=== PATIENT | female | born 1970 | race African-American/Black ===

== ENCOUNTER 2023-08-30 15:07 | Outpatient (AMB) | payer OTHER, SELFPAY ==
--- NOTE | 2023-08-30 15:07 | MHC.OFFVIS ---
Vital Signs 08/30/23 15:12 Height 5 ft 5 in Weight 202 lb 2.622 oz BMI 33.6 BP 152/98 H Blood Pressure Location Lt brachial Position Sitting Intake Visit Reasons: Joint Pain ?FM/CM Intake Note: [id number] Recruiting Assistant Required: Yes Recruiting Assistant Language: Finding Fastener Name: Louise Londono ( LORETTA) Allergies No Known Allergies Allergy (Verified 08/30/23 15:10) HPI Comments Details: Mr. Parra 53yoF presents for evlauation of pain all over body she has had for a few years and gets worse daily. --started in heel bottom of feet - cortisone x 4. restarted to hurt last year. - bottom heel injections 5 years ago --pain in two big toes, knees leg, arms, hips, middle of back - knees hurt with going down stairs, feels instability especially right knee. --morning pain is intense - resolves in about 30 minutes. --cortisone to both thumbs; trigger thumb last year --had PT for hands and forearm for CTS. --denies swelling in joints. --takes Ibuprofen 600 mg which helps PFSH Medical History (Updated 08/30/23 @ 15:51 by ALEX Mejia-) Chronic radicular pain of lower back Pain in joint involving multiple sites Allergic rhinitis Asthma Other cervical disc displacement, unspecified cervical region Positive PPD Obesity, unspecified Menorrhagia Iron deficiency anemia, unspecified Uterine mass Vitamin D deficiency, unspecified Surgical History (Updated 08/17/23 @ 10:34 by LEA Arciniega) Hx of dilation and curettage Hx of section Family History (Updated 08/17/23 @ 10:34 by LEA Arciniega) Mother Brain aneurysm Review of Systems Const All systems reviewed & are unremarkable except as noted in HPI and below Physical Exam Vital Signs: Last Vital Signs BP 152/98 H 08/30/23 15:12 BMI result Body Mass Index 33.6 APPEARANCE: Patient in no acute distress EYES no redness, normal EARS:? External ear normal. NOSE/SINUS:? Airflow through both nares, no nasal discharge, no bleeding THROAT:? Oral mucosa moist, no ulcerations NECK:? No thyromegaly or masses, no adenopathy, trachea midline. HEART:? Regular rhythm, S1-S2 heard, no murmurs, rubs or gallops. LUNG:? Clear to percussion and auscultation EXTREMITIES:? No edema, no calf tenderness, normal peripheral pulses. NEURO:? Oriented and alert x3.? No focal weakness.? Reflexes symmetric.? Gait normal. SKIN:? There are no skin lesions evident. No objective signs of Raynaud's phenomenon. JOINT EXAM: Cervical Spine:.? Full range of motion without pain; no tenderness. Thoracic Spine:.? No scoliosis.? No tenderness on palpation. Lumbar Spine:.? Alignment normal.? decreased range of motion with soreness when bent over, , mild paraspinal tenderness. Chest Wall:.? No tenderness, swelling, increased warmth or erythema. Hands:.? Normal pain-free range of motion with diffused mild tenderness but no swelling, increased warmth or erythema. Able to make a full fist and has a good wood room hand strength. Wrists:.? Normal pain-free range of motion without tenderness, swelling, increased warmth or erythema. Elbows:. Normal pain-free range of motion without tenderness, swelling, increased warmth or erythema. Shoulders:.?? Full range of motion without pain. No tenderness, weakness, swelling, increased warmth or erythema. Hips:.? Full range of motion without pain. Hip bursa:.? No tenderness. Knees:.?? Normal pain-free range of motion without tenderness, swelling, increased warmth or erythema.? There is no effusion or crepitation Ankles:.? Normal pain-free range of motion without tenderness, swelling, increased warmth or erythema. Feet:.? Normal pain-free range of motion without tenderness, swelling, increased warmth or erythema. Tender points:? No tenderness to digital palpation at the occiput, trapezius, second rib, lateral epicondyle, knees, greater trochanter and gluteal area bilaterally. ? Results Reviewed Results Reviewed: Laboratory Tests 08/30/23 16:12 WBC 5.5 RBC 5.05 Hgb 12.2 Hct 37.6 ESR 8 Creatinine 0.69 Estimated GFR > 60 AST 17 ALT 15 C-Reactive Protein < 0.10 Assessment & Plan Assessment & Plan (1) Pain in joint involving multiple sites: Code(s): M25.50 - Pain in unspecified joint Category: Medical Plan #Patient with pain in multiple joints, lower back both knees and hands. Not much tenderness with palpation is elicited on PE. She denies swelling and warmth and redness and none observed on PE. I suspect the patient might have heel spurs for which she had received cortisone injection 5 years ago or more. Nonetheless she does not present as having an inflammatory arthritis. I will obtain additional labs and x-rays for further workup. Spent 40 minutes reviewing history, evaluating patient and documenting Five weeks follow up Orders: Orders Anti DNA DS Antibody 08/30/23 M25.50 - Pain in unspecified joint Complete Blood Count Auto Diff 08/30/23 M25.50 - Pain in unspecified joint Comprehensive Met. Panel 08/30/23 M25.50 - Pain in unspecified joint C Reactive Protein 08/30/23 M25.50 - Pain in unspecified joint Immunofixation Pnl, Serum 08/30/23 M25.50 - Pain in unspecified joint Immunoglobulins,IgG IgA IgM 08/30/23 M25.50 - Pain in unspecified joint Protein Electrophoresis, Serum 08/30/23 M25.50 - Pain in unspecified joint Cyclic Citrullinated Peptide 08/30/23 M25.50 - Pain in unspecified joint Rheumatoid Factor 08/30/23 M25.50 - Pain in unspecified joint XR knee LT 3V 08/30/23 M25.50 - Pain in unspecified joint XR hand RT 2V 08/30/23 M25.50 - Pain in unspecified joint XR knee RT 3V 08/30/23 M25.50 - Pain in unspecified joint XR lumbar spine 2-3V 08/30/23 G89.29 - Other chronic pain, M54.16 - Radiculopathy, lumbar region Erythrocyte Sedimentation Rate 08/30/23 M25.50 - Pain in unspecified joint ASHLY Reflex Titer and Pattern 08/30/23 M25.50 - Pain in unspecified joint Anti Extractable Nuclear Ag 08/30/23 M25.50 - Pain in unspecified joint Creatine Kinase Total 08/30/23 M25.50 - Pain in unspecified joint Uric Acid 08/30/23 M25.50 - Pain in unspecified joint XR foot LT min 3V 08/30/23 M25.50 - Pain in unspecified joint XR foot RT min 3V 08/30/23 M25.50 - Pain in unspecified joint XR hand LT 2V 08/30/23 M25.50 - Pain in unspecified joint Coding Level of Care Code New Pt Level 4 (48208) Diagnoses Pain in joint involving multiple sites M25.50
[2023-08-30 15:12] VITALS: BP 152/98; BMI 33.6
== END 2023-08-30 15:53 | disposition home or self-care (01) ==
PROVIDERS: PCP Nurse Practitioner Family; Referring Provider Nurse Practitioner Family; Visit Provider Nurse Practitioner Family
DX: M25.50 Pain in unspecified joint (principal)
CPT/HCPCS: 99204

== ENCOUNTER 2023-08-30 15:07 | Outpatient (REF) | payer OTHER, SELFPAY ==
--- NOTE | ~2023-08-30 | XR_ITS ---
EXAMINATION: XR HAND, RIGHT XR HAND, LEFT XR KNEE, RIGHT XR FOOT, RIGHT XR FOOT, LEFT CLINICAL INDICATION: Pain in unspecified joint. COMPARISON: None available. TECHNIQUE: 3 views of each foot, 3 views of each hand, 3 views of the right knee. FINDINGS: RIGHT KNEE: Trace joint effusion. Mild narrowing of the medial compartment. Advanced degenerative changes in the patellofemoral compartment with asymmetric narrowing of the lateral aspect of the patellofemoral joint with subchondral sclerosis and cystic changes. Small tricompartmental osteophytes. Small calcification in the soft tissues lateral to the lateral femoral condyle. RIGHT HAND: Mild degenerative changes in the first carpometacarpal joint with joint space narrowing and hypertrophic change. Bone mineralization is normal. Mild hypertrophic changes in multiple DIP joints. LEFT HAND: Mild degenerative changes in the first carpometacarpal joint with joint space narrowing and hypertrophic change. Bone mineralization is normal. Mild hypertrophic changes in multiple DIP joints. RIGHT FOOT: Bone mineralization is normal. Moderate plantar calcaneal spur. Degenerative changes with hypertrophic change at the dorsal aspect of the midfoot. Mild degenerative changes in the first metatarsophalangeal joint with joint space narrowing and hypertrophic change. Metatarsus adductus, hallux valgus. LEFT FOOT: Bone mineralization is normal. Moderate plantar calcaneal spur. Degenerative changes with hypertrophic change at the dorsal aspect of the midfoot. Mild degenerative changes in the first metatarsophalangeal joint with joint space narrowing and hypertrophic change. Metatarsus adductus, hallux valgus. XR/XR hand RT 2V IMPRESSION: 1. Advanced degenerative changes right patellofemoral compartment. 2. Mild degenerative changes bilateral first carpometacarpal joints. 3. Mild degenerative changes in the bilateral first metatarsophalangeal joints. 4. Mild bilateral plantar calcaneal spurs. 5. Metatarsus adductus, hallux valgus bilaterally.
--- NOTE | ~2023-08-30 | XR_ITS ---
EXAMINATION: XR LUMBOSACRAL SPINE CLINICAL INFORMATION: Radiculopathy lumbar region. COMPARISON: None available. TECHNIQUE: Three views of the lumbosacral spine. FINDINGS: Facet arthritis in the lower lumbar spine. Levoscoliosis of the lumbar spine. Multilevel lumbar spondylosis with mild loss of disc space height at L4-L5 and moderate loss of disc space height at L5-S1. Mild grade 1 retrolisthesis of L5 on S1. XR/XR lumbar spine 2-3V IMPRESSION: Multilevel lumbar spondylosis most notable at L5-S1.
--- NOTE | ~2023-08-30 | XR_ITS ---
EXAMINATION: XR HAND, RIGHT XR HAND, LEFT XR KNEE, RIGHT XR FOOT, RIGHT XR FOOT, LEFT CLINICAL INDICATION: Pain in unspecified joint. COMPARISON: None available. TECHNIQUE: 3 views of each foot, 3 views of each hand, 3 views of the right knee. FINDINGS: RIGHT KNEE: Trace joint effusion. Mild narrowing of the medial compartment. Advanced degenerative changes in the patellofemoral compartment with asymmetric narrowing of the lateral aspect of the patellofemoral joint with subchondral sclerosis and cystic changes. Small tricompartmental osteophytes. Small calcification in the soft tissues lateral to the lateral femoral condyle. RIGHT HAND: Mild degenerative changes in the first carpometacarpal joint with joint space narrowing and hypertrophic change. Bone mineralization is normal. Mild hypertrophic changes in multiple DIP joints. LEFT HAND: Mild degenerative changes in the first carpometacarpal joint with joint space narrowing and hypertrophic change. Bone mineralization is normal. Mild hypertrophic changes in multiple DIP joints. RIGHT FOOT: Bone mineralization is normal. Moderate plantar calcaneal spur. Degenerative changes with hypertrophic change at the dorsal aspect of the midfoot. Mild degenerative changes in the first metatarsophalangeal joint with joint space narrowing and hypertrophic change. Metatarsus adductus, hallux valgus. LEFT FOOT: Bone mineralization is normal. Moderate plantar calcaneal spur. Degenerative changes with hypertrophic change at the dorsal aspect of the midfoot. Mild degenerative changes in the first metatarsophalangeal joint with joint space narrowing and hypertrophic change. Metatarsus adductus, hallux valgus. XR/XR foot LT min 3V IMPRESSION: 1. Advanced degenerative changes right patellofemoral compartment. 2. Mild degenerative changes bilateral first carpometacarpal joints. 3. Mild degenerative changes in the bilateral first metatarsophalangeal joints. 4. Mild bilateral plantar calcaneal spurs. 5. Metatarsus adductus, hallux valgus bilaterally.
--- NOTE | ~2023-08-30 | XR_ITS ---
EXAMINATION: XR KNEE, LEFT CLINICAL INFORMATION: Pain in unspecified joint. COMPARISON: None available. TECHNIQUE: Three views of the left knee. FINDINGS: Small joint effusion. Mild narrowing of the medial compartment. Asymmetric lateral narrowing of the patellofemoral compartment with subchondral sclerosis and lucencies as well as marginal osteophytes on the sunrise view. Small medial and posterior patellar osteophytes. XR/XR knee LT 3V IMPRESSION: Degenerative changes most notable in the patellofemoral compartment.
--- NOTE | ~2023-08-30 | XR_ITS ---
EXAMINATION: XR HAND, RIGHT XR HAND, LEFT XR KNEE, RIGHT XR FOOT, RIGHT XR FOOT, LEFT CLINICAL INDICATION: Pain in unspecified joint. COMPARISON: None available. TECHNIQUE: 3 views of each foot, 3 views of each hand, 3 views of the right knee. FINDINGS: RIGHT KNEE: Trace joint effusion. Mild narrowing of the medial compartment. Advanced degenerative changes in the patellofemoral compartment with asymmetric narrowing of the lateral aspect of the patellofemoral joint with subchondral sclerosis and cystic changes. Small tricompartmental osteophytes. Small calcification in the soft tissues lateral to the lateral femoral condyle. RIGHT HAND: Mild degenerative changes in the first carpometacarpal joint with joint space narrowing and hypertrophic change. Bone mineralization is normal. Mild hypertrophic changes in multiple DIP joints. LEFT HAND: Mild degenerative changes in the first carpometacarpal joint with joint space narrowing and hypertrophic change. Bone mineralization is normal. Mild hypertrophic changes in multiple DIP joints. RIGHT FOOT: Bone mineralization is normal. Moderate plantar calcaneal spur. Degenerative changes with hypertrophic change at the dorsal aspect of the midfoot. Mild degenerative changes in the first metatarsophalangeal joint with joint space narrowing and hypertrophic change. Metatarsus adductus, hallux valgus. LEFT FOOT: Bone mineralization is normal. Moderate plantar calcaneal spur. Degenerative changes with hypertrophic change at the dorsal aspect of the midfoot. Mild degenerative changes in the first metatarsophalangeal joint with joint space narrowing and hypertrophic change. Metatarsus adductus, hallux valgus. XR/XR knee RT 3V IMPRESSION: 1. Advanced degenerative changes right patellofemoral compartment. 2. Mild degenerative changes bilateral first carpometacarpal joints. 3. Mild degenerative changes in the bilateral first metatarsophalangeal joints. 4. Mild bilateral plantar calcaneal spurs. 5. Metatarsus adductus, hallux valgus bilaterally.
--- NOTE | ~2023-08-30 | XR_ITS ---
EXAMINATION: XR HAND, RIGHT XR HAND, LEFT XR KNEE, RIGHT XR FOOT, RIGHT XR FOOT, LEFT CLINICAL INDICATION: Pain in unspecified joint. COMPARISON: None available. TECHNIQUE: 3 views of each foot, 3 views of each hand, 3 views of the right knee. FINDINGS: RIGHT KNEE: Trace joint effusion. Mild narrowing of the medial compartment. Advanced degenerative changes in the patellofemoral compartment with asymmetric narrowing of the lateral aspect of the patellofemoral joint with subchondral sclerosis and cystic changes. Small tricompartmental osteophytes. Small calcification in the soft tissues lateral to the lateral femoral condyle. RIGHT HAND: Mild degenerative changes in the first carpometacarpal joint with joint space narrowing and hypertrophic change. Bone mineralization is normal. Mild hypertrophic changes in multiple DIP joints. LEFT HAND: Mild degenerative changes in the first carpometacarpal joint with joint space narrowing and hypertrophic change. Bone mineralization is normal. Mild hypertrophic changes in multiple DIP joints. RIGHT FOOT: Bone mineralization is normal. Moderate plantar calcaneal spur. Degenerative changes with hypertrophic change at the dorsal aspect of the midfoot. Mild degenerative changes in the first metatarsophalangeal joint with joint space narrowing and hypertrophic change. Metatarsus adductus, hallux valgus. LEFT FOOT: Bone mineralization is normal. Moderate plantar calcaneal spur. Degenerative changes with hypertrophic change at the dorsal aspect of the midfoot. Mild degenerative changes in the first metatarsophalangeal joint with joint space narrowing and hypertrophic change. Metatarsus adductus, hallux valgus. XR/XR foot RT min 3V IMPRESSION: 1. Advanced degenerative changes right patellofemoral compartment. 2. Mild degenerative changes bilateral first carpometacarpal joints. 3. Mild degenerative changes in the bilateral first metatarsophalangeal joints. 4. Mild bilateral plantar calcaneal spurs. 5. Metatarsus adductus, hallux valgus bilaterally.
--- NOTE | ~2023-08-30 | XR_ITS ---
EXAMINATION: XR HAND, RIGHT XR HAND, LEFT XR KNEE, RIGHT XR FOOT, RIGHT XR FOOT, LEFT CLINICAL INDICATION: Pain in unspecified joint. COMPARISON: None available. TECHNIQUE: 3 views of each foot, 3 views of each hand, 3 views of the right knee. FINDINGS: RIGHT KNEE: Trace joint effusion. Mild narrowing of the medial compartment. Advanced degenerative changes in the patellofemoral compartment with asymmetric narrowing of the lateral aspect of the patellofemoral joint with subchondral sclerosis and cystic changes. Small tricompartmental osteophytes. Small calcification in the soft tissues lateral to the lateral femoral condyle. RIGHT HAND: Mild degenerative changes in the first carpometacarpal joint with joint space narrowing and hypertrophic change. Bone mineralization is normal. Mild hypertrophic changes in multiple DIP joints. LEFT HAND: Mild degenerative changes in the first carpometacarpal joint with joint space narrowing and hypertrophic change. Bone mineralization is normal. Mild hypertrophic changes in multiple DIP joints. RIGHT FOOT: Bone mineralization is normal. Moderate plantar calcaneal spur. Degenerative changes with hypertrophic change at the dorsal aspect of the midfoot. Mild degenerative changes in the first metatarsophalangeal joint with joint space narrowing and hypertrophic change. Metatarsus adductus, hallux valgus. LEFT FOOT: Bone mineralization is normal. Moderate plantar calcaneal spur. Degenerative changes with hypertrophic change at the dorsal aspect of the midfoot. Mild degenerative changes in the first metatarsophalangeal joint with joint space narrowing and hypertrophic change. Metatarsus adductus, hallux valgus. XR/XR hand LT 2V IMPRESSION: 1. Advanced degenerative changes right patellofemoral compartment. 2. Mild degenerative changes bilateral first carpometacarpal joints. 3. Mild degenerative changes in the bilateral first metatarsophalangeal joints. 4. Mild bilateral plantar calcaneal spurs. 5. Metatarsus adductus, hallux valgus bilaterally.
[2023-08-30 16:19] LABS: MANUAL DIFF FLAG NO
[2023-08-30 16:35] LABS: Basophils Percent Auto 0.6 % (0-2); Eosinophils Absolute Auto 0.1 X10*3/uL (0.0-0.4); Eosinophils Percent Auto 1.7 % (0-4); Hematocrit 37.6 % (37.0-47.0); Hemoglobin 12.2 g/dl (12.0-16.0); Imm Gran Abs Auto 0.01 X10*3/uL (0.00-0.03); Imm Gran Pct Auto 0.2 % (0.0-0.4); Lymphocytes Absolute Auto 1.3 X10*3/uL (1.2-4.9); Lymphocytes Percent Auto 24.6 % (20-40); Mean Corpuscular HGB Conc 32.4 g/dl (31.0-35.0); Mean Corpuscular Hemoglobin 24.2 pg (27.0-33.0); Mean Corpuscular Volume 74.5 fL (80.0-98.0); Mean Platelet Volume 11.6 fL (9.4-12.3); Monocytes Absolute Auto 0.7 X10*3/uL (0.1-1.2); Monocytes Percent Auto 11.9 % (2-11); Neutrophils Absolute Auto 3.3 x10*3/uL (2.0-8.3); Platelet Count 241 X10*3/uL (160-400); Red Blood Count 5.05 X10*6/uL (4.20-5.50); Red Cell Distribution Width 14.4 % (11.0-16.0); White Blood Count 5.5 X10*3/uL (4.8-10.8)
[2023-08-30 17:30] LABS: Erythrocyte Sedimentation Rate 8 MM/HR (0-20)
[2023-08-30 17:48] LABS: Rheumatoid Factor < 13.0 IU/mL (<15.0)
[2023-08-30 17:55] LABS: Alanine Aminotransferase 15 U/L (0-31); Albumin Level 4.3 g/dL (3.5-5.0); Alkaline Phosphatase 59 U/L (39-117); Anion Gap 13 (12-20); Aspartate Amino Transferase 17 U/L (5-31); Bilirubin Total 0.2 mg/dL (0.0-1.0); Blood Urea Nitrogen 14 mg/dL (9-16); C Reactive Protein < 0.10 mg/dL (< or = 0.50); Calcium 9.1 mg/dL (8.4-10.2); Carbon Dioxide 24 mmol/L (22-29); Chloride 108 mmol/L (96-108); Estimated Glomerular Filt Rate > 60; Glucose Random 95 mg/dL (60-115); Potassium 4.1 mmol/L (3.3-5.1); Sodium 141 mmol/L (135-145); Total Protein 7.7 g/dL (6.5-8.0)
[2023-08-30 18:06] LABS: Uric Acid 4.9 mg/dL (2.4-5.7)
[2023-08-31 21:13] LABS: Anti DNA DS Antibody <1 IU/mL; SM/Ribonucleoprotein Ab <1.0 NEG AI (<1.0 NEG); Smith Protein <1.0 NEG AI (<1.0 NEG)
[2023-08-31 22:13] LABS: Prot Elec - Albumin 4.4 g/dL (3.8-4.8); Prot Elec - Alpha1 0.2 g/dL (0.2-0.3); Prot Elec - Alpha2 0.7 g/dL (0.5-0.9); Prot Elec - Beta 1 0.5 g/dL (0.4-0.6); Prot Elec - Beta 2 0.5 g/dL (0.2-0.5); Prot Elec - Gamma 1.3 g/dL (0.8-1.7); Prot Elec - Total Protein 7.5 g/dL (6.1-8.1)
[2023-09-01 14:44] LABS: Cyclic Citrullinated Peptide <16 UNITS
[2023-09-04 14:24] LABS: Anti Nuclear Antibody Pattern Mitotic, Centrosome; Anti Nuclear Antibody Screen POSITIVE (NEGATIVE)
[2023-09-04 22:08] LABS: IgA 278 mg/dL (47-310); IgG 1513 mg/dL (600-1640); IgM 28 mg/dL (50-300)
== END 2023-08-30 15:08 | disposition home or self-care (01) ==
LOC: HO.XRAY 15:07
PROVIDERS: PCP Nurse Practitioner Family; Referring Provider Nurse Practitioner Family; Visit Provider Nurse Practitioner Family
DX: M25.50 Pain in unspecified joint (principal); M54.16 Radiculopathy, lumbar region; G89.29 Other chronic pain
CPT/HCPCS: 36415; 72100; 73120; 73562; 73630; 80053; 82550; 82784; 84165; 84550; 85025; 85652; 86038; 86039; 86140; 86200; 86225; 86235; 86334; 86431; 99202

== ENCOUNTER 2023-11-06 15:41 | Outpatient (AMB) | payer OTHER, SELFPAY ==
[2023-11-06 15:44] VITALS: BP 140/82; PULSE 101; O2SAT 97; BMI 33.8
--- NOTE | 2023-11-06 15:44 | A.OFFVIS_ITS ---
Vital Signs 11/06/23 15:44 Height 5 ft 5 in Weight 203 lb BMI 33.8 BP 140/82 H Blood Pressure Location Lt brachial Position Sitting Pulse 101 H Pulse Source Pulse Oximeter Pulse Oximetry (%) 97 Oxygen Delivery Method Room Air Intake Visit Reasons: Joint Pain Intake Note: Patient is here to follow up on joint pain, was seen by Addie Lau on 08/30/2023. She had her labs drawn on the same day. Waiter/Waitress Head Required: Yes Waiter/Waitress Head Services: Waiter/Waitress Head Present Waiter/Waitress Head Name: Rossy Coronel. Accompanied by: Spouse Allergies No Known Allergies Allergy (Verified 11/06/23 15:49) Medication List - Last Reconciled 11/06/23 by Bertin Arzola MD cetirizine 10 mg PO DAILY cholecalciferol (vitamin D3) 1,250 mcg PO QWEEK cyclobenzaprine 5 mg PO TID PRN ibuprofen 600 mg PO Q6H PRN lisinopril 10 mg PO DAILY HPI Comments Details: Patient returns for follow-up after completion of her diagnostic workup. Patient is unaware of any family history of an autoimmune rheumatic disease. Denies any history of DVT/PE. No history of recurrent miscarriages. Initial history by Addie Bryant 08/2023: Mr. Parra 53yoF presents for evlauation of pain all over body she has had for a few years and gets worse marimar y. --started in heel bottom of feet - cortisone x 4. restarted to hurt last year. - bottom heel injections 5 years ago --pain in two big toes, knees leg, arms, hips, middle of back - knees hurt with going down stairs, feels instability especially right knee. --morning pain is intense - resolves in about 30 minutes. --cortisone to both thumbs; trigger thumb last year --had PT for hands and forearm for CTS. --denies swelling in joints. --takes Ibuprofen 600 mg which helps PFSH Medical History Chronic radicular pain of lower back Pain in joint involving multiple sites Allergic rhinitis Asthma Other cervical disc displacement, unspecified cervical region Positive PPD Obesity, unspecified Menorrhagia Iron deficiency anemia, unspecified Uterine mass Vitamin D deficiency, unspecified Surgical History Hx of dilation and curettage Hx of section Family History Mother Brain aneurysm Female Reproductive History Menstrual Total pregnancies: 4 Full term: 3 Ab spontaneous: 1 Review of Systems ENT Reports neck pain Musc Reports back pain, Reports arthralgias, Reports neck pain and Reports stiffness Physical Exam Vital Signs: Last Vital Signs Pulse 101 H 11/06/23 15:44 BP 140/82 H 11/06/23 15:44 Pulse Ox 97 11/06/23 15:44 Oxygen Delivery Method Room Air 11/06/23 15:44 BMI result Body Mass Index 33.8 Const General: cooperative, healthy appearing and comfortable Nutritional Appearance: obese Orientation/consciousness: patient oriented x3 Limitations: no limitations HEENT Head: Yes normocephalic and Yes atraumatic Mouth: moist mucous membranes Resp Effort & Inspection: normal respiratory effort and able to speak in complete sentences Auscultation: clear to auscultation bilaterally Cardio Rate: regular rate Rhythm: regular rhythm Skin General skin exam: no rashes or lesions noted Neuro General: patient oriented x3 Extrem Other: Mild tenderness at the base of the right thumb No active synovitis of both hands Normal range of motion of elbows and shoulders without pain Mild bilateral knee pain with full flexion and extension bilateral bunions Normal nailfold capillaroscopy Assessment & Plan Assessment & Plan (1) Pain in joint involving multiple sites: Code(s): M25.50 - Pain in unspecified joint Category: Medical Plan: This is a 53-year-old female who presents for evaluation of diffuse joint pain. Upon evaluation I do not see any signs suggestive of an autoimmune rheumatic disease. Clinical picture rather consistent with degenerative arthritis. (2) ASHLY positive: Code(s): R76.8 - Other specified abnormal immunological findings in serum Category: Medical Plan: Labs showed a positive ASHLY with negative sub serologies and normal inflammatory markers. There is no history of DVT/PE, no history of repeated miscarriages. The significance of her positive ASHLY is unclear. Positive ASHLY can be seen in about 20% of the population Plan I spent 30 minutes reviewing patient's chart, evaluating patient, counseling patient and documenting in the chart Coding Level of Care Code Est Pt Level 4 (36488) Diagnoses Pain in joint involving multiple sites M25.50 ASHLY positive R76.8
== END 2023-11-06 16:13 | disposition home or self-care (01) ==
PROVIDERS: PCP Nurse Practitioner Family; Visit Provider Student in an Organized Health Care Education/Training Program
DX: M25.50 Pain in unspecified joint (principal); R76.8 Other specified abnormal immunological findings in serum
CPT/HCPCS: 99214

== ENCOUNTER → 2023-11-06 15:41 | Outpatient (BNVA) | payer OTHER, SELFPAY | PROVIDERS: PCP Nurse Practitioner Family; Visit Provider Student in an Organized Health Care Education/Training Program | DX: M25.50 Pain in unspecified joint (principal); R76.8 Other specified abnormal immunological findings in serum | CPT/HCPCS: 99212 ==